=== PATIENT | male | born 1955 | race Caucasian/White ===

== ENCOUNTER → 2018-02-05 | Emergency (ER) | payer OTHER ==
[~2018-02-05] VITALS: Ht 167.6 cm; Wt 81.6 kg
[~2018-02-05] MED LIST: METFORMIN HCL500 MG; PROMETH-CODEIN 65 ML PO; SYMBICORT 16010.2 GM IH; SYNTHROID137 MCG; TESSALON PERLE100 M1 PO; ZITHROMAX500 MG PO
== END | disposition home or self-care (01) ==
LOC: ER 08:52
DX: R05 Cough (principal); J11.1 Influenza due to unidentified influenza virus with other respiratory manifestations

== ENCOUNTER 2018-05-14 10:03 | Outpatient (CLI) | payer OTHER | END 2018-05-14 10:11 | disposition home or self-care (01) | LOC: RAD 10:03 | DX: N20.0 Calculus of kidney (principal) ==

== ENCOUNTER 2018-08-25 08:36 | Emergency (ER) | payer OTHER ==
[~2018-08-25] VITALS: Ht 167.6 cm; Wt 70.8 kg
[2018-08-25] MEDS ORDERED: JANUMET 50-5001 EACH (08:45)
[2018-08-25] MEDS ORDERED: ALLEGRA ALLERG180 MG (08:47)
[2018-08-25] MEDS ORDERED: FLOVENT DISKUS50 MCG (08:47)
== END 2018-08-25 10:10 | disposition home or self-care (01) ==
LOC: ER 08:36
DX: L50.8 Other urticaria (principal)

== ENCOUNTER 2018-09-14 07:31 | Outpatient (CLI) | payer OTHER ==
[~2018-09-14 07:31] MED LIST changes: +ALLEGRA ALLERG180 MG; +FLOVENT DISKUS50 MCG; +JANUMET 50-5001 EACH
== END 2018-09-14 07:38 | disposition home or self-care (01) ==
LOC: RAD 07:31 → MAMO-SONO 08:45
DX: N20.0 Calculus of kidney (principal)

== ENCOUNTER 2018-10-08 07:45 | Outpatient (CLI) | payer OTHER | END 2018-10-08 07:56 | disposition home or self-care (01) | LOC: RAD 07:45 | DX: I10 Essential (primary) hypertension (principal); Z01.811 Encounter for preprocedural respiratory examination ==

== ENCOUNTER 2018-10-28 07:32 | Outpatient (CLI) | payer OTHER | END 2018-10-28 07:34 | disposition home or self-care (01) | LOC: RX STUDY 07:32 | DX: N20.1 Calculus of ureter (principal) ==

== ENCOUNTER 2018-12-17 10:34 | Outpatient (CLI) | payer OTHER | END 2018-12-17 10:39 | disposition home or self-care (01) | LOC: SONOGRAMA 10:34 | DX: N20.0 Calculus of kidney (principal) ==

== ENCOUNTER 2019-08-25 07:56 | Outpatient (CLI) | payer OTHER | END 2019-08-25 09:13 | disposition home or self-care (01) | LOC: MRI 07:56 | PROVIDERS: ATTEND Orthopaedic Surgery | DX: M54.5 Low back pain (principal) | CPT/HCPCS: 72148 ==

== ENCOUNTER 2019-12-07 05:03 | Day surgery (SDC) | payer OTHER ==
[~2019-12-07 05:03] MED LIST changes: -SYNTHROID137 MCG; +SYNTHROID137 MCG PO; +UROXATRAL10 MG PO
[2019-12-07] MEDS ORDERED: PERCOCET 5-3251 EACH PO (15:56)
== END 2019-12-07 16:45 | disposition home or self-care (01) ==
LOC: CIR.AMB 05:03
PROVIDERS: ATTEND Surgery
DX: L72.0 Epidermal cyst (principal); Z20.828 Contact with and (suspected) exposure to other viral communicable diseases

== ENCOUNTER 2020-07-03 14:53 | Outpatient (CLI) | payer OTHER ==
[~2020-07-03 14:53] MED LIST changes: +PERCOCET 5-3251 EACH PO
== END 2020-07-03 15:04 | disposition home or self-care (01) ==
LOC: MRI 14:53
PROVIDERS: ATTEND Psychiatry & Neurology Neurology
DX: M54.17 Radiculopathy, lumbosacral region (principal); M48.061 Spinal stenosis, lumbar region without neurogenic claudication
CPT/HCPCS: 72148

== ENCOUNTER 2020-09-28 07:12 | Outpatient (CLI) | payer OTHER | END 2020-09-28 07:16 | disposition home or self-care (01) | LOC: TOM 07:12 | PROVIDERS: ATTEND Internal Medicine Gastroenterology | DX: R19.5 Other fecal abnormalities (principal); N28.89 Other specified disorders of kidney and ureter ==

== ENCOUNTER 2020-11-19 10:45 | Outpatient (CLI) | payer OTHER | END 2020-11-19 10:47 | disposition home or self-care (01) | LOC: RAD 10:45 | PROVIDERS: ATTEND Specialist | DX: N20.0 Calculus of kidney (principal) ==

== ENCOUNTER 2021-05-23 08:00 | Outpatient (CLI) | payer OTHER | END 2021-05-23 08:30 | disposition home or self-care (01) | LOC: PPH VACUNA 08:00 | PROVIDERS: ATTEND Emergency Medicine Pediatric Emergency Medicine | DX: Z23 Encounter for immunization (principal) ==

== ENCOUNTER 2021-05-26 07:57 | Emergency (ER) | payer OTHER ==
[~2021-05-26] VITALS: Ht 167.6 cm; Wt 76.2 kg
== END 2021-05-26 08:44 | disposition home or self-care (01) ==
LOC: ER 07:57
DX: J30.9 Allergic rhinitis, unspecified (principal); Z88.6 Allergy status to analgesic agent; Z88.8 Allergy status to other drugs, medicaments and biological substances

== ENCOUNTER 2021-06-26 08:51 | Outpatient (CLI) | payer OTHER | END 2021-06-26 08:58 | disposition home or self-care (01) | LOC: RAD 08:51 | PROVIDERS: ATTEND Orthopaedic Surgery | DX: M25.521 Pain in right elbow (principal) ==

== ENCOUNTER 2022-01-27 07:03 | Outpatient (CLI) | payer OTHER | END 2022-01-27 07:05 | disposition home or self-care (01) | LOC: RAD 07:03 | PROVIDERS: ATTEND Orthopaedic Surgery | DX: M79.641 Pain in right hand (principal) ==

== ENCOUNTER 2022-11-24 07:14 | Outpatient (CLI) | payer OTHER | END 2022-11-24 07:18 | disposition home or self-care (01) | LOC: SONOGRAMA 07:14 | DX: M79.642 Pain in left hand (principal) ==